=== PATIENT | male | born 1955 ===

== ENCOUNTER 2024-11-10 15:34 | Inpatient (IN) | payer MEDICARE ==
[~2024-11-10] VITALS: Ht 182.9 cm; Wt 114.8 kg
[2024-11-10 15:47] LABS: Calcium, Ionized (POC) 0.94 mmol/L (1.10-1.46); Chloride (POC) 106 mmol/L (98-108); Creatinine (POC) 3.4 mg/dL (0.8-1.3); Glucose (ISTAT POC) 86 mg/dL (70-99); Hemoglobin (POC) 18.7 g/dL (13.5-17.5); Potassium (POC) 3.9 mmol/L (3.5-5.5); Sodium (POC) 138 mmol/L (135-148); Total CO2 (POC) 14 mmol/L (21-32)
[2024-11-10] MEDS ORDERED: Vancomycin HCL 2,000 MG in NS 520 ML IV ONE (15:50)
[2024-11-10] MEDS ORDERED: Piperacillin/Tazobactam Sod 4.5 GM in NS 100 ML IV ONE (15:50)
[2024-11-10] MEDS ORDERED: Lactated Ringer's 1,000 ML IV ONE ×2 (15:50→16:55)
[2024-11-10 15:51] LABS: Base Excess Venous -14 mmol/L; Bicarbonate Venous 15.5 mmol/L (24.0-30.0); PCO2 Venous 26.2 mmHg (38-42); pH Blood Venous 7.29 (7.34-7.37)
[2024-11-10 15:55] LABS: Hematocrit 53.5 % (37.0-53.0); Hemoglobin 18.4 g/dL (13.5-17.5); Mean Corpuscular HGB 34.1 pg (26.0-34.0); Mean Corpuscular HGB Conc 34.4 g/dL (31.5-36.5); Mean Corpuscular Volume 99 fL (80-100); RDW Coefficient Variation 16.3 % (11.7-14.2); RDW Standard Deviation 60.2 fL (35.1-46.3); White Blood Cell Count 14.87 K/mm3 (4.00-11.30)
[2024-11-10 16:14] LABS: Mean Platelet Volume 13.2 fL (9.1-12.4)
[2024-11-10 16:15] LABS: Albumin, Blood 2.6 g/dL (3.4-5.0); Albumin/Globulin Ratio 0.8 (0.8-1.8); Bilirubin, Total 3.9 mg/dL (0.1-1.0); Bun/Creatinine Ratio 14.3 (12.0-20.0); Calcium, Blood 8.1 mg/dL (8.5-10.1); Creatinine, Blood 3.07 mg/dL (0.60-1.20); Globulin, Blood 3.4 g/dL (2.2-4.0); Magnesium, Blood 1.8 mg/dL (1.6-2.4); Platelet Count 35 K/mm3 (150-400)
[2024-11-10 16:21] LABS: CORONAVIRUS COVID-19 AG Negative (NEGATIVE); INFLUENZA A AG Negative (NEGATIVE); INFLUENZA B AG Negative (NEGATIVE)
[2024-11-10] MEDS ORDERED: Etomidate 2MG / ML 10ML Vial IV ONE (16:25)
[2024-11-10] MEDS ORDERED: Rocuronium Bromide 10 MG/ML 5ML Injection IV ONE (16:25)
[2024-11-10] MEDS ORDERED: propofoL 100 ML IV SCH (16:45)
[2024-11-10] MEDS ORDERED: Acetaminophen 650 MG Supp PR ONE (16:55)
[2024-11-10 17:00] LABS: Source, Urine Clean Catch
[2024-11-10 17:12] LABS: BAND PERCENT MAN 20 % (0-8); BASOPHILS PERCENT MAN 0 % (0-2); EOSINOPHILS PERCENT MAN 0 % (0-6); LYMPHOCYTES ABSOLUTE MAN 0.44 K/mm3 (0.84-5.20); LYMPHOCYTES PERCENT MAN 3 % (21-46); MONOCYTES ABSOLUTE MAN 1.04 K/mm3 (0.16-1.47); MONOCYTES PERCENT MAN 7 % (4-13); NEUTROPHILS ABSOLUTE MAN 13.38 K/mm3 (1.96-9.15); SEG NEUTROPHILS PERCENT MAN 70 % (41-73); TOTAL CELLS COUNTED 100
[2024-11-10 17:20] LABS: Appearance, Urine Clear (Clear); Blood, Urine 5+ (Neg); Color, Urine Amber (P-Yellow); Glucose Qualitative, Urine Neg (Neg); Ketones, Urine Neg (Neg); Leukocyte Esterase, Urine 1+ (Neg); Nitrite, Urine Neg (Neg); Protein, Urine 3+ (Neg); Specific Gravity, Urine 1.015 (1.003-1.022); Urobilinogen, Urine 2+ (Normal)
[2024-11-10 17:29] LABS: Bilirubin, Urine 1+ (Neg)
[2024-11-10 17:32] LABS: Mucus Light (0-Heavy)
[2024-11-10 17:33] LABS: Bacteria Few /hpf; Squamous Epithelial Cells Few /hpf (Few)
[2024-11-10 17:45] LABS: U Amphetamine Screen Not Detected; U Barbituate Screen Not Detected; U Benzodiazapine Screen Not Detected; U Buprenorphine Screen Not Detected; U Cannabinoids Screen DETECTED; U Cocaine Screen Not Detected; U Methadone Screen Not Detected; U Methamphetamine Screen Not Detected; U Opiates Screen Not Detected; U Oxycodone Screen Not Detected; U Phencyclidine Screen Not Detected
[2024-11-10] MEDS ORDERED: NS 1,000 ML IV SCH (18:25)
[2024-11-10] MEDS ORDERED: Ondansetron HCl 2 MG / ML 2ML Vial IV PRN (18:35)
[2024-11-10] MEDS ORDERED: FLU VACC TS2024-25(6MOS UP)/PF 45 MCG/0.5 ML SYRINGE IM ONE (18:40)
[2024-11-10] MEDS ORDERED: Mag Sulfate 1 GM/D5% 100ML 100 ML IV STA (18:45)
[2024-11-10] MEDS ORDERED: Albumin (Human) 25gm/100ml 100 ML IV ONE ×2 (18:45→23:45)
[2024-11-10] MEDS ORDERED: Sodium Bicarb 8.4% 1 MEQ/ML 50 ML Vial IV ONE (19:00)
[2024-11-10] MEDS ORDERED: Sodium Bicarb 8.4% Inj 150 MEQ in Dextrose 5% 1,000 ML IV SCH (19:00)
[2024-11-10 19:09] LABS: International Normalized Ratio 2.59; Prothrombin Time Results 25.8 Sec (9.7-11.5)
[2024-11-10] MEDS ORDERED: Acetaminophen 325 MG TABLET PO PRN (19:50)
[2024-11-10 20:00] VITALS: BP 94/62
[2024-11-10] MEDS ORDERED: Cetylpyridinium Chloride 1 EA MISC MT SCH (20:00)
[2024-11-10] MEDS ORDERED: Cefepime HCl 1,000 MG in NS 100 ML IV SCH (20:00)
[2024-11-10 21:38] LABS: Bun/Creatinine Ratio 15.1 (12.0-20.0); Calcium, Blood 8.3 mg/dL (8.5-10.1); Creatinine, Blood 3.52 mg/dL (0.60-1.20); Potassium, Blood 4.4 mmol/L (3.5-5.5)
[2024-11-10 22:00] VITALS: BP 81/45
[2024-11-10 22:12] VITALS: BP 88/53
[2024-11-10 23:00] VITALS: BP 95/61
[2024-11-10] MEDS ORDERED: Dextrose 50% 50 ML Vial ONE (23:34)
[2024-11-10] MEDS ORDERED: Dextrose 50% 50 ML Vial IV ONE (23:50)
[2024-11-11] VITALS (28 sets, daily range): BP systolic 80–127; BP diastolic 31–106
[2024-11-11] MEDS ORDERED: Hydrogen Peroxide 1.5 % Solution MT SCH
[2024-11-11 02:13] LABS: Mean Platelet Volume 12.1 fL (9.1-12.4); Platelet Count 56 K/mm3 (150-400)
[2024-11-11] MEDS ORDERED: NS 500 ML IV ONE ×2 (03:00→03:06)
[2024-11-11 04:05] LABS: Hematocrit 49.9 % (37.0-53.0); Hemoglobin 16.4 g/dL (13.5-17.5); Mean Corpuscular HGB Conc 32.9 g/dL (31.5-36.5); Mean Corpuscular Volume 103 fL (80-100); Mean Platelet Volume 10.6 fL (9.1-12.4); RDW Coefficient Variation 17.1 % (11.7-14.2); Red Blood Cell Count 4.83 M/mm3 (4.30-5.90); White Blood Cell Count 17.29 K/mm3 (4.00-11.30)
[2024-11-11 04:08] LABS: Platelet Count 43 K/mm3 (150-400)
[2024-11-11 04:24] LABS: Albumin, Blood 2.9 g/dL (3.4-5.0); Albumin/Globulin Ratio 1.1 (0.8-1.8); Bilirubin, Total 5.1 mg/dL (0.1-1.0); Bun/Creatinine Ratio 13.4 (12.0-20.0); Calcium, Blood 7.7 mg/dL (8.5-10.1); Creatinine, Blood 4.25 mg/dL (0.60-1.20); Globulin, Blood 2.6 g/dL (2.2-4.0); Potassium, Blood 4.1 mmol/L (3.5-5.5); Total Protein, Blood 5.5 g/dL (6.4-8.2)
--- NOTE | 2024-11-11 04:51 | NUR ---
NURSING NOTE: THIS PT CAME TO ICU AT AROUND 2100 FROM ER. PT CURRENTLY INTUBATED AND SEDATED.
[2024-11-11 05:10] LABS: BAND PERCENT MAN 40 % (0-8); BASOPHILS PERCENT MAN 0 % (0-2); EOSINOPHILS PERCENT MAN 0 % (0-6); LYMPHOCYTES % ATYPICAL MANUAL 1 % (0-0); LYMPHOCYTES ABSOLUTE MAN 1.55 K/mm3 (0.84-5.20); LYMPHOCYTES PERCENT MAN 8 % (21-46); METAMYELOCYTE ABSOLUTE MAN 0.69 K/mm3 (0.00-0.00); METAMYELOCYTE PERCENT MAN 4 % (0-0); MONOCYTES ABSOLUTE MAN 1.21 K/mm3 (0.16-1.47); MONOCYTES PERCENT MAN 7 % (4-13); MYELOCYTE ABSOLUTE MAN 0.34 K/mm3 (0.00-0.00); MYELOCYTE PERCENT MAN 2 % (0-0); NEUTROPHILS ABSOLUTE MAN 13.48 K/mm3 (1.96-9.15); SEG NEUTROPHILS PERCENT MAN 38 % (41-73); TOTAL CELLS COUNTED 100
--- NOTE | 2024-11-11 06:02 | NUR ---
END OF SHIFT NOTE: THIS PT HAS BEEN INTUBATED AND SEDATED AND NOT OVERBREATHING VENT. SOME ACUTE EVENTS DID OCCUR OVERNIGHT. PRESSER SUPPORT INCREASED THROUGHOUT THE NIGHT THROUGH PERIPHERAL IV, DISCUSSION OF CENTRAL LINE HAD WITH DR COOPER. PLATLETS REPLACED OVERNIGHT. PT ALSO HAD AN EPISODE OF HYPOGLYCEMIA THAT WAS INTERVENED WITH D50.
[2024-11-11 08:52] LABS: Hematocrit 49.4 % (37.0-53.0); Hemoglobin 16.5 g/dL (13.5-17.5); Mean Corpuscular HGB 34.2 pg (26.0-34.0); Mean Corpuscular HGB Conc 33.4 g/dL (31.5-36.5); Mean Corpuscular Volume 102 fL (80-100); RDW Coefficient Variation 17.1 % (11.7-14.2); RDW Standard Deviation 65.6 fL (35.1-46.3); Red Blood Cell Count 4.83 M/mm3 (4.30-5.90); White Blood Cell Count 17.85 K/mm3 (4.00-11.30)
[2024-11-11 08:57] LABS: Mean Platelet Volume 13.4 fL (9.1-12.4); Platelet Count 42 K/mm3 (150-400)
[2024-11-11] MEDS ORDERED: Pantoprazole Sodium 40 MG Injection IV SCH ×2 (09:00→10:00)
[2024-11-11] MEDS ORDERED: Meropenem 500 MG in NS 100 ML IV SCH (09:00)
--- NOTE | 2024-11-11 09:00 | NUR ---
AM NOTE... ASSUMED CARE OF PT AT 0700, PT IS INTUBATED AT AC/VC: 20/400/5/40% WITH O2 SATS>95% PT IS ABLE TO FOLLOW COMMANDS AND NOD HIS HEAD TO SIMPLE "YES/NO" QUESTIONS. LEVOPHED IS RUNNING AT 9MCG/MIN TO KEEP MAPS>65, BICARB GTT RUNNING PER ORDERS. PROPOFOL IS ON STANDBY D/T LOW BPs. OG TUBE IS SET TO LIS WITH DARK GASTRIC CONTENTS NOTED IN THE CANSITER AND TUBING. BT VERY HYPOACTIVE, ABD IS LARGE AND TENDER TO PALPATION. TEMP MARTIN IS PATENT AND DRAINING TO GRAVITY. PT IS HAVING LARGE BLACK/MAROON LIQUID STOOLS. PICC LINE PLACED PER ORDERS TO [facility]. THE PT'S CLAUDIO AND RLE HAVE LARGE "WATER BLISTERS" WITH SOME THAT ARE OPEN AND OOZING. RED/PURPLE AREAS MARKED WITH SKIN MARKER AT THE START OF THIS SHIFT. PULSES WERE NOT FOUND WITH DOPPLER TO THE BLE PROIVDER IS AWARE. FEET AND TOES ARE NOTED TO BE CYANOTIC WITH CAP REFIL OF >6 SECONDS.
[2024-11-11 09:12] LABS: Acetaminophen, Random 3.8 ug/mL (10.0-30.0); Magnesium, Blood 2.2 mg/dL (1.6-2.4)
[2024-11-11] MEDS ORDERED: Dextrose 50% 50 ML Vial ONE ×2 (09:20→22:03)
[2024-11-11 09:21] LABS: Albumin, Blood 2.7 g/dL (3.4-5.0); Albumin/Globulin Ratio 1.1 (0.8-1.8); Bilirubin, Total 5.3 mg/dL (0.1-1.0); Bun/Creatinine Ratio 13.9 (12.0-20.0); Calcium, Blood 7.6 mg/dL (8.5-10.1); Creatinine, Blood 4.47 mg/dL (0.60-1.20); Globulin, Blood 2.5 g/dL (2.2-4.0); Phosphorus, Blood 8.5 mg/dL (2.5-4.9); Potassium, Blood 4.5 mmol/L (3.5-5.5); Total Protein, Blood 5.2 g/dL (6.4-8.2)
[2024-11-11] MEDS ORDERED: Dextrose 50% 50 ML Vial IV ONE (09:25)
[2024-11-11 09:32] LABS: D-Dimer, Quantitative >35.20 mg/L FEU (0.00-0.52); Fibrinogen 197 mg/dL (170-430); International Normalized Ratio 1.97
[2024-11-11] MEDS ORDERED: Octreotide Acetate 50 MCG in NS 50 ML IV STA (09:43)
[2024-11-11] MEDS ORDERED: Octreotide Acetate 500 MCG in NS 250 ML IV SCH (09:50)
[2024-11-11 09:56] LABS: BAND PERCENT MAN 32 % (0-8); BASOPHILS PERCENT MAN 0 % (0-2); EOSINOPHILS PERCENT MAN 0 % (0-6); LYMPHOCYTES ABSOLUTE MAN 1.96 K/mm3 (0.84-5.20); LYMPHOCYTES PERCENT MAN 11 % (21-46); METAMYELOCYTE ABSOLUTE MAN 1.78 K/mm3 (0.00-0.00); METAMYELOCYTE PERCENT MAN 10 % (0-0); MONOCYTES ABSOLUTE MAN 0.89 K/mm3 (0.16-1.47); MONOCYTES PERCENT MAN 5 % (4-13); MYELOCYTE ABSOLUTE MAN 0.71 K/mm3 (0.00-0.00); MYELOCYTE PERCENT MAN 4 % (0-0); NEUTROPHILS ABSOLUTE MAN 12.49 K/mm3 (1.96-9.15); SEG NEUTROPHILS PERCENT MAN 38 % (41-73); TOTAL CELLS COUNTED 100
[2024-11-11] MEDS ORDERED: Vasopressin 20 UNITS in NS 100 ML IV SCH (10:00)
[2024-11-11] MEDS ORDERED: Albumin Human 50 ML IV ONE (10:05)
--- NOTE | 2024-11-11 10:48 | NUR ---
"Spiritual Care | Family request At the request of a family member this sulfur burner visited the Pt. Pt. is intubated, but was genrally responsive as he opened eyes and intitially nodded appropriately. Pastoral care is given, and matters of karmen and belief are addressed. Prayed xena alvarado Pt. Will continue to be available to the Pt. and family."
[2024-11-11] MEDS ORDERED: FentaNYL Citrate 50 MCG/ML 2 ML Injection IV PRN (10:55)
[2024-11-11] MEDS ORDERED: Lactated Ringer's 500 ML IV ONE (12:30)
[2024-11-11] MEDS ORDERED: Hydrocortisone Sod Succinate 100 MG Vial IV SCH (15:00)
--- NOTE | 2024-11-11 15:30 | NUR ---
INITIAL PALLIATIVE CARE VISIT: MET PATIENT IN ROOM THIS MORNING AT 1045. PT IS ON VENTILATOR. HIS EYES ARE OPEN AND HE IS ABLE TO NOD YES/NO TO QUESTIONS. PT IS ABLE TO NOD YES WHEN ASKED IF HE KNEW HE WAS IN THE HOSPITAL. HE NODS YES TO BEING ABLE TO UNDERSTAND WHAT I AM SAYING. I EXPLAINED TO PATIENT HE IS ON A VENTILATOR FOR LIFE SUPPORT AND ASKED IF HE WANTS US TO CONTINUE TO DO EVERYTHING WE CAN TO KEEP HIM ALIVE. PATIENT NODDED YES AGAIN. ALSO DR. ETIENNE WANTED TO KNOW IF PATIENT HAD EATEN OYSTERS RECENTLY. PATIENT WAS ASKED THIS AND HE NODDED HIS HEAD NO. RN PRESENT AND RELAYED THE INFORMATION TO HER. SPOKE TO DAUGHTER KIMBERLY ON THE PHONE. KIMBERLY REPORTS SHE HAS SPOKEN TO A DOCTOR THIS MORNING AND IS AWARE HER DAD IS INTUBATED AND ON PRESSORS. KIMBERLY STATES SHE IS IN [place] [facility] AND FLYING IN TO SEE DAD POSSIBLE. SHE SAID HER FLIGHT HAS BEEN DELAYED 2 TIMES NOW DUE TO WEATHER. KIMBERLY ALSO INFORMED ME JULIA IS NOT LEGALLY TO HER DAD AND SO IF ANY DECISIONS NEED TO BE MADE ABOUT CARE FOR HER DAD IT SHOULD BE HER AND NOT JULIA. KIMBERLY GAVE ME HER OTHER SISTERS NAME AND NUMBER ([id number]). SUNNY IS ALSO ON HER WAY AND WILL BE HERE TODAY.
[2024-11-11] MEDS ORDERED: NS 500 ML IV SCH (15:35)
[2024-11-11] MEDS ORDERED: Rocuronium Bromide 10 MG/ML 5ML Injection IV ONE (17:24)
[2024-11-11] MEDS ORDERED: Thiamine HCl 250 MG in NS 100 ML IV SCH (18:00)
[2024-11-11] MEDS ORDERED: Vancomycin HCL 1,000 MG in NS 250 ML IV SCH (18:00)
--- NOTE | 2024-11-11 18:30 | NUR ---
SHIFT SUMMARY... AFTER THE PICC LINE WAS PLACED LEVOPHED WAS TITRATED UP TO 40MCG/MIN KEEP MAPS>65, VASOPRESSIN WAS STARTED WELL. PROPOFOL WAS STARTED FOR THE PT'S COMFORT ALONG WITH PRN FENTANYL PUSHES. PT WAS TAKEN TO CT FOR CHEST/ABD/PELVIS WITH CONTRAST. PT TOLERATED THIS WELL. PT'S FIO2 WAS INCREASED FROM 40% TO 50% TO KEEP O2 SATS>90%. AN ART LINE WAS PLACED TO THE PT'S RIGHT FEMORAL ARTERY FOR ACCURATE BPs. SOME BLEEDING/OOZING NOTED AT THE ART LINE SITE, MANUAL PRESSURE WAS HELD AND THE BLEEDING STOPPED. THE PT WAS GIVEN 1 UNIT OF PRBCs, 1 UNIT OF FFP AND 1 UNIT OF PLTs THIS SHIFT. PT CONTINUES TO HAVE BLACK/MAROON LOOSE STOOLS. TEMP MARTIN IS PATENT AND DRAINING SCANT URINE TO GRAVITY. THE WATER BLISTERS ON THE PT'S RLE AND CLAUDIO BROKE AND OPENED UP, BOTH AREAS ARE CURRENTLY OOZING S/S FLUID, CHUX PADS IN PLACE. CURRENTLY PT'S LEVOPHED DRIP IS RUNNING AT 30MCG/MIN, VASO AT 0.04U/HR TO KEEP MAPS>65. PT'S DAUGHTER IS ON HER WAY UP FROM [place]. WILL REPORT TO ONCOMING RN.
[2024-11-11 18:40] LABS: Albumin, Blood 2.4 g/dL (3.4-5.0); Bilirubin, Total 5.8 mg/dL (0.1-1.0); Bun/Creatinine Ratio 13.7 (12.0-20.0); Calcium, Blood 6.6 mg/dL (8.5-10.1); Creatinine, Blood 4.37 mg/dL (0.60-1.20); Globulin, Blood 2.5 g/dL (2.2-4.0); Potassium, Blood 4.1 mmol/L (3.5-5.5); Total Protein, Blood 4.9 g/dL (6.4-8.2)
[2024-11-11 18:41] LABS: Hemoglobin 15.9 g/dL (13.5-17.5); Mean Corpuscular HGB 34.4 pg (26.0-34.0); Mean Corpuscular HGB Conc 35.3 g/dL (31.5-36.5); Mean Platelet Volume 12.7 fL (9.1-12.4); NRBC ABSOLUTE 0.02 K/mm3 (0.00-0.02); NRBC Auto 0.1 /100 WBC (0.0-0.2); Platelet Count 52 K/mm3 (150-400); RDW Coefficient Variation 17.2 % (11.7-14.2); RDW Standard Deviation 62.2 fL (35.1-46.3); Red Blood Cell Count 4.62 M/mm3 (4.30-5.90)
[2024-11-11 18:42] LABS: Mean Corpuscular Volume 97 fL (80-100)
--- NOTE | 2024-11-11 19:45 | NUR ---
UPDATE DURING SHIFT REPORT PT HR INCREASED TO 160-200'S. PRN FENTANYL GIVEN, LEVOPHED TITRATED DOWN TO 25MC/MIN, AND PT SUCTIONED. NO OBVIOUS SIGNS OF BLEEDING AT THIS TIME. CALL MADE TO DR ETIENNE WHO PROVIDED ORDERS FOR AMIO BOLUS FOLLOWED BY AMIO GTT.
[2024-11-11 19:59] LABS: BAND PERCENT MAN 26 % (0-8); BASOPHILS PERCENT MAN 0 % (0-2); EOSINOPHILS PERCENT MAN 0 % (0-6); LYMPHOCYTES % ATYPICAL MANUAL 4 % (0-0); LYMPHOCYTES ABSOLUTE MAN 3.22 K/mm3 (0.84-5.20); LYMPHOCYTES PERCENT MAN 14 % (21-46); METAMYELOCYTE ABSOLUTE MAN 1.61 K/mm3 (0.00-0.00); METAMYELOCYTE PERCENT MAN 9 % (0-0); MONOCYTES ABSOLUTE MAN 0.89 K/mm3 (0.16-1.47); MONOCYTES PERCENT MAN 5 % (4-13); MYELOCYTE ABSOLUTE MAN 0.89 K/mm3 (0.00-0.00); MYELOCYTE PERCENT MAN 5 % (0-0); NEUTROPHILS ABSOLUTE MAN 11.27 K/mm3 (1.96-9.15); SEG NEUTROPHILS PERCENT MAN 37 % (41-73); TOTAL CELLS COUNTED 100
[2024-11-11 20:13] LABS: PCO2 Arterial 30.4 mmHg (35-45); PO2 Arterial 64.8 mmHg (80-100); pH Blood Arterial 7.37 (7.35-7.45)
[2024-11-11] MEDS ORDERED: CALCIUM GLUC IN NACL, ISO-OSM 50 ML IV ONE (20:25)
[2024-11-11] MEDS ORDERED: Phenylephrine HCl in 0.9% NaCl 250 ML IV SCH (20:30)
[2024-11-11 20:49] LABS: Vancomycin, Random 21.6 ug/mL
[2024-11-11] MEDS ORDERED: Dose Adjust by Pharmacy XX STA (20:59)
--- NOTE | 2024-11-11 21:00 | NUR ---
ASSUMED CARE NOTE/UPDATE ASSUMED CARE OF PT AT 1900, REFER TO PREVIOUS NOTE REGARDING CARDIAC EVENTS. PT IS INTUBATED AND SEDATED. PROPOFOL INFUSING AT 30MCG/KG/MIN WITH RASS -2 TO -3; PRN FENTANYL HELPFUL. VENT SETTINGS AC/VC 20/450/5/50%, ABG COMPLETED WHEN UNABLE TO GET SPO2 READING, NO CHANGES TO VENT AFTERWARDS; SMALL AMOUNT OF DARK RED SECREATIONS FROM ETT AND ORAL SECREATIONS. FEBRILE, ICE PACKS IN PLACE. CONT TO BE IN AFIB WITH ELEVATED RATE; AMIODERONE INFUSING AT 1MG/MIN. BP SOFT WITH MAP 65-75; EVE STARTED WITH THE GOAL OF DECREASING LEVOPHED GTT WHICH MIGHT BE AFFECTING HR; LEVOPHED, VASOPRESSIN AND EVE CURRENTLY INFUSING, SEE FLOWSHEET FOR TITRATIONS. OG TO LIS; ABD SEVERLY DISTENDED; SANDASTATIN INFUSING AT GOAL; NO RECTAL BLEEDING AT THIS TIME. MARTIN IN PLACE WITH SMALL AMOUNT OF TARIQ OUTPUT. PICC TO RUE PATENT. ART LINE TO RT FEM MILDLY WEEPING. RLE DISCOLORATION SLIGHTLY EXPANDING SINCE OUTLINED DURING DAY SHIFT; UNABLE TO DOPPLER BILATERAL PEDAL PULSES; BILATERAL POSTERIER TIBIAL PULSE FOUND WITH DOPPLER. WEEPING WOUND CONT ON LUE; NEW BLISTERS FORMED ON PENIS. CALCIUM REPLACED. SEE SHIFT ASSESSMENT FOR FULL ASSESSMENT.
[2024-11-11] MEDS ORDERED: Dextrose 50% 50 ML Syringe IV ONE (22:20)
--- NOTE | 2024-11-11 23:22 | NUR ---
UPDATE DAUGHTER KIMBERLY ARRIVED FROM [place]. CURRENTLY AT BEDSIDE.
[2024-11-12 04:21] LABS: Hematocrit 46.5 % (37.0-53.0); Hemoglobin 16.4 g/dL (13.5-17.5); Mean Corpuscular HGB 34.2 pg (26.0-34.0); Mean Corpuscular HGB Conc 35.3 g/dL (31.5-36.5); Mean Corpuscular Volume 97 fL (80-100); NRBC ABSOLUTE 0.05 K/mm3 (0.00-0.02); NRBC Auto 0.3 /100 WBC (0.0-0.2); RDW Coefficient Variation 17.2 % (11.7-14.2); RDW Standard Deviation 62.4 fL (35.1-46.3); Red Blood Cell Count 4.79 M/mm3 (4.30-5.90); White Blood Cell Count 19.71 K/mm3 (4.00-11.30)
[2024-11-12 04:23] LABS: Platelet Count 50 K/mm3 (150-400)
[2024-11-12 04:48] LABS: PCO2 Arterial 33.1 mmHg (35-45); pH Blood Arterial 7.35 (7.35-7.45)
[2024-11-12 04:52] LABS: BAND PERCENT MAN 23 % (0-8); BASOPHILS PERCENT MAN 0 % (0-2); EOSINOPHILS PERCENT MAN 0 % (0-6); LYMPHOCYTES ABSOLUTE MAN 0.98 K/mm3 (0.84-5.20); LYMPHOCYTES PERCENT MAN 5 % (21-46); METAMYELOCYTE ABSOLUTE MAN 0.19 K/mm3 (0.00-0.00); METAMYELOCYTE PERCENT MAN 1 % (0-0); MONOCYTES ABSOLUTE MAN 1.18 K/mm3 (0.16-1.47); MONOCYTES PERCENT MAN 6 % (4-13); MYELOCYTE ABSOLUTE MAN 0.19 K/mm3 (0.00-0.00); MYELOCYTE PERCENT MAN 1 % (0-0); NEUTROPHILS ABSOLUTE MAN 17.14 K/mm3 (1.96-9.15); SEG NEUTROPHILS PERCENT MAN 64 % (41-73); TOTAL CELLS COUNTED 100
[2024-11-12 04:56] LABS: Magnesium, Blood 2.3 mg/dL (1.6-2.4)
[2024-11-12 05:16] LABS: Alanine Aminotransfer (ALT/SGP 637 U/L (12-78); Albumin, Blood 2.5 g/dL (3.4-5.0); Albumin/Globulin Ratio 0.9 (0.8-1.8); Alk Phos 85 U/L (50-136); Anion Gap 24 mmol/L (3-11); Aspartate Aminotrans (AST/SGOT 2267 U/L (12-37); Bilirubin, Total 7.3 mg/dL (0.1-1.0); Blood Urea Nitrogen 71 mg/dL (8-24); Bun/Creatinine Ratio 15.8 (12.0-20.0); CO2, Blood 18 mmol/L (21-32); Calcium, Blood 6.5 mg/dL (8.5-10.1); Chloride, Blood 99 mmol/L (98-108); Creatinine, Blood 4.48 mg/dL (0.60-1.20); Globulin, Blood 2.7 g/dL (2.2-4.0); Glomerular Filtration Rate 13 (60-); Glucose, Blood 97 mg/dL (70-99); Phosphorus, Blood 7.3 mg/dL (2.5-4.9); Sodium, Blood 136 mmol/L (136-145); Total Protein, Blood 5.2 g/dL (6.4-8.2); Vancomycin, Random 20.4 ug/mL
[2024-11-12] MEDS ORDERED: CALCIUM GLUC IN NACL, ISO-OSM 100 ML IV ONE (06:15)
--- NOTE | 2024-11-12 06:44 | NUR ---
END OF SHIFT SUMMARY NO ACUTE EVENTS SINCE LAST NOTE. CONT TO BE SEDATED WITH PROPOFOL INFUSING AT 30MCG/KG/MIN; RASS -2 TO -3. MAX TEMP 101.5; ICE PACKS AND FAN HELPFUL. VENT SETTINGS AC/VC 20/450/5/50%. HR IMPROVED OVER THE SHIFT; AFIB NOTED WITH RATE 120-170'S. SBP 100-120 WITH MAP 65-74; LEVOPHED INFUSING AT 20MCG/MIN, VASOPRESSIN INFUSING AT 0.04UNITS/MIN, AND EVE INFUSING AT 40MCG/MIN; AMIODERONE INFUSING AT 0.5MG/MIN. OG TO LIS; NO OUTPUT THIS SHIFT; OCTREOTIDE INFUSING. MARTIN IN PLACE WITH SMALL AMOUNT OF TARIQ OUTPUT. SKIN CONT TO BE FRAGILE; LARGE WEEPING BLISTER TO RLE AND LUE. ART LINE TO RT FEM PATENT; MILD LEAKING NOTED FROM SITE. PICC TO RUE PATENT WITH DRESSING C/D/I. WILL REPORT TO AM RN WHEN AVAILABLE.
[2024-11-12] MEDS ORDERED: Dextrose 50% 50 ML Vial ONE (09:10)
[2024-11-12 11:49] VITALS: BP 118/55
[2024-11-12 12:44] VITALS: BP 140/83
--- NOTE | 2024-11-12 13:17 | NUR ---
Spiritual Care Visit. Pt. is intubated and is mostly not responsive. Daughter is at bedside and welcomes my visit. facilitate a lengthy life review and in the process identify common life journeys. Rapport is established. Daughter verbalized that other family are en route. Considered matters of karmen and belief. Prayed for the Pt. with pastoral care being given. Daughter verbalized gratitude for the spiritual care visit and welcomed this camp housekeeper to return. Will remain available tot he Pt. and family.
[2024-11-12] MEDS ORDERED: Dextrose 50% 50 ML Vial IV ONE (14:35)
[2024-11-12 14:48] VITALS: BP 126/58
[2024-11-12 16:05] VITALS: BP 97/47
[2024-11-12 16:41] LABS: Albumin, Blood 2.3 g/dL (3.4-5.0); Albumin/Globulin Ratio 0.9 (0.8-1.8); Bilirubin, Total 8.1 mg/dL (0.1-1.0); Bun/Creatinine Ratio 17.3 (12.0-20.0); Calcium, Blood 6.1 mg/dL (8.5-10.1); Creatinine, Blood 4.67 mg/dL (0.60-1.20); Globulin, Blood 2.5 g/dL (2.2-4.0); Potassium, Blood 4.6 mmol/L (3.5-5.5); Total Protein, Blood 4.8 g/dL (6.4-8.2)
--- NOTE | 2024-11-12 18:10 | NUR ---
SHIFT SUMMARY PT REMAINS INTUBATED AND SEDATED c PROPOFOL, SEE FLOWSHEET FOR TITRATIONS. NO CHANGES TO VENT SETTINGS, SEE RT CHARTING. PT GIVEN SEDATION VACATION THIS AFTERNOON, OPENING EYES BUT NOT FOLLOWING COMMANDS, PLACED BACK ON SEDATION FOR VENT COMPLIANCE. TITRATING LEVOPHED FOR MAP >65 VIA ARTERIAL LINE, EVE & VASOPRESSIN OFF. SKIN REMAINS FRAGILE, SCATTERED BLISTERS, SEE PICTURES AND ASSESSMENT. BLE CIRCULATION APPEARS TO BE WORSENING, DR. LAWRENCE. UNABLE TO DOPPLER L PEDAL PULSE, FOOT COLD TO TOUCH, SKIN WARM ABOVE MID EDUARDO TO LE. R PEDAL PULSES VIA DOPPLER PRESENT, R FOOT COOL. CAP REFILL >3 SECONDS. URINE OUTPUT AROUND <30ML/HR THIS SHIFT. SMALL DARK LOOSE BM TODAY. FAMILY AT BEDSIDE T/O DAY
[2024-11-13 02:13] VITALS: BP 97/47
--- NOTE | 2024-11-13 04:26 | NUR ---
TRANSFER TO [facility] PT TRANSFERED TO [facility] IN [place] VIA [facility] AMBULENCE. PT CONT TO BE INTUBATED AND SEDATED. REACH LEFT TRELL AT 0355 AND REPORT WAS GIVEN TO JANET AT [facility] AT 0405; PT ROOM [id number]. CALL MADE TO PT DAUGHTER KIMBERLY REGARDING DEPARTURE TIME. PT LEFT TRELL SEDATED WITH PROPOFOL INFUSING AT 20MCG/KG/MIN; RASS -3 AFTER PRN FENTANYL GIVEN. CORE TEMP 99.9. VENT SETTINGS AC/VC 20/450/5/60%; ETT EXCHANGED D/T CUFF LEAK BEFORE TRANSFER; NEW ETT PLACED AT 0335, 7.5 ETT, 23CM AT [facility]; REACH DECLINED FOLLOW UP CHEST XRAY, RATIONAL WAS PT TIDAL VOLUMS 450-600, SPO2 >96%, AND END TIDAL CO2 30'S, BILATERAL BREATH SOUNDS HEARD BY RT, THIS RN, AND REACH CREW. PT CONVERTED TO NSR WITH RATE IN THE 80'S AT 2030; ORDER PROVIDED TO CONT AMIODERONE TO INFUSE AT 0.5MG/MIN. SINCE CONVERTING TO NSR, BP HAS IMPROVED AND LEVOPHED TITRATED DOWN TO 10MCG/MIN; VASOPRESSIN INFUSING AT 0.04UNITS/MIN; MAP 70-75; BLE DOPPLER PULSES FOUND. ART LINE TO RT FEM PATENT; SITE LEAKING, DRESSING CHANGED BEFORE TRANSPORT. OG TO LIS AND THEN CLAMPED FOR TRANSPORT; NO OG OUTPUT; OCTRIOTIDE INFUSING AT GOAL. MARTIN IN PLACE WITH SMALL AMOUNT OF TARIQ OUTPUT. PT CONT TO HAVE LARGE OPEN WOUNDS AND BLISTERS THAT ARE WEEPING; ABSORBANT PADS CHANGED SEVERAL TIMES T/O SHIFT. PICC TO RUE PATENT WITH DRESSING C/D/I. PT BELONGING SENT WITH AMBULENCE CREW.
--- NOTE | 2024-11-13 05:30 | NUR ---
DAUGHTERS CONTACT NUMBER [id number],
== END 2024-11-13 04:00 | disposition short-term general hospital (02) | DRG 871 ==
LOC: ER 15:34 → ICUE 18:24
PROVIDERS: Emergency Medicine; Student in an Organized Health Care Education/Training Program; ADMIT Internal Medicine
PROC: 5A1945Z Respiratory Ventilation, 24-96 Consecutive Hours (ICD-10-PCS; principal; 2024-11-10)
PROC: 0BH17EZ Insertion of Endotracheal Airway into Trachea, Via Natural or Artificial Opening (ICD-10-PCS; 2024-11-10)
PROC: 5A2204Z Restoration of Cardiac Rhythm, Single (ICD-10-PCS; 2024-11-10)
PROC: 3E043XZ Introduction of Vasopressor into Central Vein, Percutaneous Approach (ICD-10-PCS; 2024-11-10)
PROC: 0DH67UZ Insertion of Feeding Device into Stomach, Via Natural or Artificial Opening (ICD-10-PCS; 2024-11-11)
PROC: 30243R1 Transfusion of Nonautologous Platelets into Central Vein, Percutaneous Approach (ICD-10-PCS; 2024-11-11)
PROC: 30243K1 Transfusion of Nonautologous Frozen Plasma into Central Vein, Percutaneous Approach (ICD-10-PCS; 2024-11-11)
PROC: 30243N1 Transfusion of Nonautologous Red Blood Cells into Central Vein, Percutaneous Approach (ICD-10-PCS; 2024-11-11)
PROC: 02HV33Z Insertion of Infusion Device into Superior Vena Cava, Percutaneous Approach (ICD-10-PCS; 2024-11-11)
PROC: 04HY32Z Insertion of Monitoring Device into Lower Artery, Percutaneous Approach (ICD-10-PCS; 2024-11-11)
PROC: 4A133B1 Monitoring of Arterial Pressure, Peripheral, Percutaneous Approach (ICD-10-PCS; 2024-11-11)
PROC: 4A133J1 Monitoring of Arterial Pulse, Peripheral, Percutaneous Approach (ICD-10-PCS; 2024-11-11)
PROC: 3E033XZ Introduction of Vasopressor into Peripheral Vein, Percutaneous Approach (ICD-10-PCS; 2024-11-11)
PROC: 30233J1 Transfusion of Nonautologous Serum Albumin into Peripheral Vein, Percutaneous Approach (ICD-10-PCS; 2024-11-11)
PROC: 4A133R1 Monitoring of Arterial Saturation, Peripheral, Percutaneous Approach (ICD-10-PCS; 2024-11-12)
DX: A40.0 Sepsis due to streptococcus, group A (principal); G93.41 Metabolic encephalopathy; J18.9 Pneumonia, unspecified organism; J96.01 Acute respiratory failure with hypoxia; R65.21 Severe sepsis with septic shock; K72.00 Acute and subacute hepatic failure without coma; I21.A1 Myocardial infarction type 2; J69.0 Pneumonitis due to inhalation of food and vomit; N17.9 Acute kidney failure, unspecified; D68.8 Other specified coagulation defects; E87.20 Acidosis, unspecified; L03.115 Cellulitis of right lower limb; L03.116 Cellulitis of left lower limb; I85.10 Secondary esophageal varices without bleeding; K76.6 Portal hypertension; I48.0 Paroxysmal atrial fibrillation; E83.51 Hypocalcemia; E16.2 Hypoglycemia, unspecified; Z66 Do not resuscitate; F10.20 Alcohol dependence, uncomplicated; K70.30 Alcoholic cirrhosis of liver without ascites; K76.82 Hepatic encephalopathy; K72.10 Chronic hepatic failure without coma; Z79.899 Other long term (current) drug therapy; K80.20 Calculus of gallbladder without cholecystitis without obstruction; K52.9 Noninfective gastroenteritis and colitis, unspecified
CPT/HCPCS: 31500; 36415; 36430; 36569; 36620; 51702; 70450; 71045; 71260; 73590; 73700; 74176; 74177; 80047; 80048; 80053; 80202; 81001; 82140; 82272; 82330; 82803; 82947; 83605; 83690; 83735; 83880; 84100; 84484; 85014; 85025; 85049; 85379; 85384; 85610; 85651; 85730; 86141; 86850; 86900; 86901; 86923; 87040; 87086; 87147; 87428-QW; 92960; 93005; 93010; 93306; 94002; 94003; 96361; 96365; 99291-25; A9270; C1751; G0480; J0282; J0612; J0692; J1720; J2185; J2354; J2371; J2470; J2543; J2704; J3010; J3370; J3411; J3475; J7030; J7040; J7050; J7060; J7070; J7120; J7799; P9016; P9035; P9047; P9059; Q9967